=== PATIENT | female | born 1960 | race Two or more races ===

== ENCOUNTER 2018-09-27 14:09 | Outpatient (CLI) | payer OTHER | END 2018-09-27 15:14 | disposition home or self-care (01) | LOC: RAD 14:09 | DX: M25.512 Pain in left shoulder (principal) ==

== ENCOUNTER 2020-04-28 10:10 | Outpatient (CLI) | payer OTHER | END 2020-04-28 10:36 | disposition home or self-care (01) | LOC: SONOGRAMA 10:10 | PROVIDERS: ATTEND Orthopaedic Surgery | DX: S93.432A Sprain of tibiofibular ligament of left ankle, initial encounter (principal); M25.572 Pain in left ankle and joints of left foot ==

== ENCOUNTER 2020-06-02 09:50 | Outpatient (CLI) | payer OTHER | END 2020-06-02 10:05 | disposition home or self-care (01) | LOC: NUCLEAR 09:50 | PROVIDERS: ATTEND Thoracic Surgery (Cardiothoracic Vascular Surgery) | DX: I73.9 Peripheral vascular disease, unspecified (principal) ==